=== PATIENT | female | born 1960 | race Caucasian/White ===

== ENCOUNTER 2017-03-27 01:46 | Inpatient (IN) | payer OTHER ==
[2017-03-27] MEDS ORDERED: ACETAMINOPHEN TAB 500 MG TAB PO STA (02:02)
[2017-03-27] MEDS ORDERED: IBUPROFEN 600 MG TAB PO STA (02:02)
--- NOTE | 2017-03-27 02:05 | ED ---
Back Pain HPI - General Chief Complaint: Back Pain/Injury Stated Complaint: Back Pain Time Seen by Provider: 03/27/17 01:55 Source: patient, RN notes reviewed Limitations: no limitations - History of Present Illness Initial Comments: 56-year-old female presents to the emergency department with a chief complaint of left-sided flank pain. Patient states she's had this for the past few days. This today she felt very fatigued and very warm. Patient states that she was concerned due to the pain with fatigue and the fever so she thought that she should be evaluated. Patient states his sister left flank. Patient states there is no radiation to the from the abdomen. Patient denies any nausea vomiting fever or chills. Patient denies any changes in urination with this. Patient states she hasn't had any other symptoms. Patient states she was concerned due to the fever and pain so she thought that she should be evaluated. Patient denies any recent shortness of breath, chest pain, back pain , abdominal pain, nausea vomiting, numbness or tingling, dysuria or hematuria, constipation or diarrhea, headaches or visual changes, or any other current symptoms. - Related Data Home Medications Medication Instructions Recorded Confirmed No Known Home Medications [No 03/27/17 03/27/17 Known Home Medications] Allergies Allergy/AdvReac Type Severity Reaction Status Date / Time No Known Allergies Allergy Verified 03/27/17 01:52 Review of Systems ROS Statement: Those systems with pertinent positive or pertinent negative responses have been documented in the HPI. ROS Other: All systems not noted in ROS Statement are negative. Past Medical History Past Medical History: No Reported History History of Any Multi-Drug Resistant Organisms: None Reported Past Surgical History: Hysterectomy Additional Past Surgical History / Comment(s): thyroidectomy Past Psychological History: No Psychological Hx Reported Smoking Status: Never smoker Past Alcohol Use History: Rare Past Drug Use History: None Reported General Exam - General Exam Comments Initial Comments: General: The patient is awake and alert, in no distress, and does not appear acutely ill. Eye: Pupils are equal, round and reactive to light, extra-ocular movements are intact; there is normal conjunctiva bilaterally. No signs of icterus. Ears, nose, mouth and throat: There are moist mucous membranes and no oral lesions. Neck: The neck is supple, there is no tenderness. Cardiovascular: There is a regular rate and rhythm. No murmur, rub or gallop is appreciated. Respiratory: Lungs are clear to auscultation, respirations are non-labored, breath sounds are equal. No wheezes, stridor, rales, or rhonchi. Gastrointestinal: Soft, non-distended, non-tender abdomen without masses or organomegaly noted. There is no rebound or guarding present. Left sided CVA tenderness. Bowel sounds are unremarkable. Back: There is no tenderness to palpation in the midline. There is no obvious deformity. No rashes noted. Musculoskeletal: Normal ROM, no tenderness, There is no pedal edema. There is no calf tenderness or swelling. Sensation intact. Pulses equal bilaterally 2+. Neurological: CN II-XII intact, There are no obvious motor or sensory deficits. Coordination appears grossly intact. Speech is normal. Skin: Skin is warm and dry and no rashes or lesions are noted. Psychiatric: Cooperative, appropriate mood & affect, normal judgment. Limitations: no limitations Course Vital Signs 03/27/17 01:46 Temperature 102.5 F H Pulse Rate 118 H Respiratory 18 Rate Blood Pressure 177/79 O2 Sat by Pulse 97 Oximetry Medical Decision Making - Medical Decision Making 56-year-old female presents for fever and flank pain. At this time patient does need sepsis criteria with a positive urine which makes a suspicion of pyelonephritis. Due to the fever and the flank pain with positive urinary will keep the patient for IV antibiotics. We did discuss this with the patient and she is in agreement with the plan. - Lab Data Result diagrams: 03/27/17 02:22 Lab Results 03/27/17 03/27/17 Range/Units 02:22 02:27 WBC 7.3 (3.8-10.6) k/uL RBC 4.32 (3.80-5.40) m/uL Hgb 12.7 (11.4-16.0) gm/dL Hct 37.0 (34.0-46.0) % MCV 85.7 (80.0-100.0) fL MCH 29.4 (25.0-35.0) pg MCHC 34.3 (31.0-37.0) g/dL RDW 13.0 (11.5-15.5) % Plt Count 186 (150-450) k/uL Neutrophils % 87 % Lymphocytes % 7 % Monocytes % 4 % Eosinophils % 1 % Basophils % 0 % Neutrophils # 6.3 (1.3-7.7) k/uL Lymphocytes # 0.5 L (1.0-4.8) k/uL Monocytes # 0.3 (0-1.0) k/uL Eosinophils # 0.1 (0-0.7) k/uL Basophils # 0.0 (0-0.2) k/uL Urine Color Yellow Urine Appearance Cloudy H (Clear) Urine pH 7.0 (5.0-8.0) Ur Specific [place] 1.014 (1.001-1.035) Urine Protein Trace H (Negative) Urine Glucose (UA) Negative (Negative) Urine Ketones Negative (Negative) Urine Blood Trace H (Negative) Urine Nitrite Negative (Negative) Urine Bilirubin Negative (Negative) Urine Urobilinogen <2.0 (<2.0) mg/dL Ur Leukocyte Esterase Large H (Negative) Urine RBC 14 H (0-5) /hpf Urine WBC 97 H (0-5) /hpf Ur Squamous Epith Cells <1 (0-4) /hpf Urine Bacteria Occasional H (None) /hpf Urine Mucus Rare H (None) /hpf - EKG Data -: EKG Interpreted by Il 03/27/17 02:39 Sinus tachycardia 109 bpm, normal axis, no atopy, no S-T depressions or elevations, Disposition Clinical Impression: Sepsis, Pyelonephritis, acute Disposition: ADMITTED IP TO THIS HOSP Condition: Stable Referrals: Keely Flores MD [Primary Care Provider] - 1-2 days Time of Disposition: 03:10 Decision Date: 03/27/17 Decision Time: 03:10
[2017-03-27] MEDS: SODIUM CHLORIDE 0.9% 500 ML IV SCH (02:20)
[2017-03-27 02:38] LABS: Basophils % (A) 0 %; CH 29.2; CHCM 34.2; Eosinophils # (A) 0.1 k/uL (0-0.7); Eosinophils % (A) 1 %; HDW 2.44; HGB 12.7 gm/dL (11.4-16.0); Luc # (Auto) 0.06; Luc % (Auto) 1; Lymphocytes # (A) 0.5 k/uL (1.0-4.8); Lymphocytes % (A) 7 %; MCH 29.4 pg (25.0-35.0); MCHC 34.3 g/dL (31.0-37.0); MCV 85.7 fL (80.0-100.0); Mean Platelet Volume 7.5; Monocytes # (A) 0.3 k/uL (0-1.0); Monocytes % (A) 4 %; Neutrophils # (A) 6.3 k/uL (1.3-7.7); Neutrophils % (A) 87 %; RBC 4.32 m/uL (3.80-5.40); WBC 7.3 k/uL (3.8-10.6)
[2017-03-27 02:45] LABS: Appearance,Urine Cloudy (Clear); Bacteria,Urine Occasional /hpf; Bilirubin,Urine Negative (Negative); Glucose,Urine (UA) Negative (Negative); Ketones,Urine Negative (Negative); Leukocyte Esterase,Urine Large (Negative); Mucus,Urine Rare /hpf; Nitrite,Urine Negative (Negative); Particle Count 6178; Protein,Urine Trace (Negative); RBC,Urine 14 /hpf (0-5); Specific Gravity,Urine 1.014 (1.001-1.035); Squamous Epithelial Cell,Urine <1 /hpf (0-4); UA Billing (MACRO vs. MICRO) MICRO; Urobilinogen,Urine <2.0 mg/dL (<2.0); WBC,Urine 97 /hpf (0-5)
[2017-03-27 02:54] LABS: Partial Thromboplastin Time 24.7 sec (22.0-30.0); Prothrombin Time 10.4 sec (9.0-12.0)
[2017-03-27 02:56] LABS: ALT 46 U/L (9-52); AST 66 U/L (14-36); Alkaline Phosphatase 72 U/L (38-126); Anion Gap 12 mmol/L; Blood Urea Nitrogen 13 mg/dL (7-17); Carbon Dioxide 22 mmol/L (22-30); Chloride 104 mmol/L (98-107); Glucose 114 mg/dL (74-99); Non-African American GFR(MDRD) >60 (>60 ml/min/1.73 sqM); Potassium 3.7 mmol/L (3.5-5.1); Sodium 138 mmol/L (137-145); Total Bilirubin 0.9 mg/dL (0.2-1.3); Total Protein 6.9 g/dL (6.3-8.2)
[2017-03-27] MEDS ORDERED: NALOXONE 0.4 MG/ML 1 ML VIAL IV PRN (03:10)
[2017-03-27] MEDS ORDERED: KETOROLAC 30 MG/ML 1 ML VIAL IVP PRN (03:10)
[2017-03-27] MEDS ORDERED: ONDANSETRON 4 MG/2 ML VIAL IVP PRN (03:10)
[2017-03-27] MEDS ORDERED: IBUPROFEN 400 MG TAB PO PRN (03:10)
[2017-03-27] MEDS: SODIUM CHLORIDE 0.9% 1,000 ML IV SCH ×3 (03:58→21:01)
[2017-03-27 05:44] VITALS: BMI 29.3
[2017-03-27] MEDS: ACETAMINOPHEN TAB 325 MG TAB PO PRN ×3 (11:28→22:46)
[2017-03-27] MEDS ORDERED: PIPERACILLIN-TAZOBACTAM 3.375 GM in DEXTROSE/WATER 1 50ML.BAG IVPB STA (12:43)
[2017-03-27] MEDS ORDERED: RX INFO: IV CONTRAST WAS GIVEN 1 EACH MISC MISCELLANE PRN (14:26)
[2017-03-27] MEDS: IBUPROFEN 600 MG TAB PO PRN (15:11)
[2017-03-27] MEDS: IOHEXOL 350 MG/ML 25 ML BOTTLE (ORAL USE) PO PRN ×2 (15:13→16:01)
[2017-03-27] MEDS: FAMOTIDINE 20 MG/2 ML VIAL IV SCH ×2 (16:01→21:00)
--- NOTE | 2017-03-27 16:19 | P.HPIM ---
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 She did not have any sore throat, she does not remember any sick contacts, patient ended up coming to the ER yesterday with a picture of sepsis with high temperature tachycardia and hypotension, she was given 3 L of normal saline in the ER and she was placed on IV antibiotic in the form of Rocephin she had a blood culture as well as urine culture and she was admitted to the hospital for evaluation, patient developed recurrent fever she was given Motrin and Tylenol and a blood culture was obtained, we switch her Rocephin into Zosyn 3.375 g IV piggyback every 6 hours, and infectious disease consultation was obtained from . And the patient was sent for CT of the abdomen and pelvis with contrast. Review of Systems Constitutional: Reports chills, Reports fever, Reports weakness Eyes: denies blurred vision, denies bulging eye, denies decreased vision, denies diplopia Ears: deny: decreased hearing Ears, nose, mouth and throat: Denies dysphagia, Denies neck lump, Denies sore throat Cardiovascular: Denies chest pain, Denies dyspnea on exertion, Denies high blood pressure, Denies orthopnea, Denies palpitations, Denies phlebitis, Denies rapid heart beat Respiratory: Denies congestion, Denies cough, Denies cough with sputum, Denies home oxygen, Denies sleep apnea, Denies snoring, Denies wheezing Gastrointestinal: Reports abdominal pain (Left flank area), Denies belching, Denies bloating, Denies BRBPR, Denies change in bowel habits, Denies excessive gas, Denies heartburn, Denies lactose intolerance, Denies melena, Denies nausea , Denies vomiting Genitourinary: Denies dysuria, Denies hot flashes, Denies nocturia, Denies urgency, Denies urinary frequency, Denies vaginal discharge Musculoskeletal: Denies myalgias Musculoskeletal: absent: ankle pain, ankle stiffness, ankle swelling, elbow pain , elbow stiffness, elbow swelling, foot pain, foot stiffness, foot swelling, hand pain, hand stiffness, hand swelling, hip pain, hip stiffness, hip swelling , knee pain, knee stiffness, knee swelling, shoulder pain, shoulder stiffness, shoulder swelling, wrist pain, wrist stiffness, wrist swelling Integumentary: Denies pruritus, Denies rash Neurological: Reports headaches, Denies numbness, Denies weakness Psychiatric: Denies anxiety, Denies depression Endocrine: Denies fatigue, Denies weight change Past Medical History Past Medical History: Thyroid Disorder (Partial thyroidectomy) History of Any Multi-Drug Resistant Organisms: None Reported Past Surgical History: Hysterectomy (Total abdominal hysterectomy and bilateral salpingo-oophorectomy secondary to uterine fibroids.) Additional Past Surgical History / Comment(s): thyroidectomy Past Anesthesia/Blood Transfusion Reactions: No Reported Reaction Past Psychological History: No Psychological Hx Reported Smoking Status: Never smoker Past Alcohol Use History: Rare Past Drug Use History: None Reported - Past Family History Father Family Medical History: Cancer (Father at age of 82 from pneumonia he also had a history of any cancer post-Whipple procedure as well as diabetes and Parkinson disease.), Diabetes Mellitus Additional Family Medical History / Comment(s): parkinsons, pancreatic cancer Mother Family Medical History: Cancer (Mother is 82-year-old has history of lung cancer as well as diabetes and hypertension she is following up with Dr. Estrada for hematology oncology.), Diabetes Mellitus, Hypertension Additional Family Medical History / Comment(s): lung cancer Brother(s) Family Medical History: No Reported History (The patient has 2 brothers no major medical problems) Sister(s) Family Medical History: Diabetes Mellitus (Patient has 6 sisters 2 of them with diabetes.) Son(s) Family Medical History: No Reported History (Patient has 2 sons no major medical problems.) Medications and Allergies Home Medications Medication Instructions Recorded Confirmed Type No Known Home Medications [No 03/27/17 03/27/17 History Known Home Medications] Allergies Allergy/AdvReac Type Severity Reaction Status Date / Time No Known Allergies Allergy Verified 03/27/17 07:45 Physical Exam Vitals: Vital Signs Temp Pulse Pulse Resp BP BP Pulse Ox 03/27/17 12:22 102.3 F H 03/27/17 11:00 135/79 03/27/17 08:00 18 03/27/17 07:00 98.4 F 90 18 91/58 93 L 03/27/17 05:13 98.9 F 95 18 103/63 96 03/27/17 03:52 99.9 F H 104 H 18 112/64 96 03/27/17 03:11 110 H 18 97 03/27/17 01:46 102.5 F H 118 H 18 177/79 97 Intake and Output 03/26/17 03/27/17 03/27/17 22:59 06:59 14:59 Intake Total 20 Balance 20 Intake: Oral 20 Other: Voiding Method Toilet Toilet Weight 77.5 kg 77.5 kg Patient Weight 03/28/17 06:59 Weight 77.5 kg - Constitutional General appearance: average body habitus, no acute distress - EENT Eyes: anicteric sclerae, EOMI, PERRLA, no ptosis, no scleral icterus, normal appearance ENT: hearing grossly normal, NA/AT, normal oropharynx, no thrush Ears: bilateral: normal - Neck Neck: no lymphadenopathy, normal ROM, no rigidity, no stridor, no thyromegaly Carotids: bilateral: upstroke normal Thyroid: bilateral: normal size - Respiratory Respiratory: bilateral: diminished, negative: dullness, rales, rhonchi, wheezing , prolonged expiration, prolonged inspiration - Cardiovascular Rhythm: regular Heart sounds: normal: S1, S2 Abnormal Heart Sounds: no systolic murmur, no S3 Gallop, no S4 Gallop, no click - Gastrointestinal General gastrointestinal: soft, no splenomegaly, tenderness (Left costophrenic angle), no umbilical hernia, no ventral hernia - Integumentary Integumentary: normal, normal turgor - Neurologic Neurologic: CNII-XII intact - Musculoskeletal Musculoskeletal: gait normal, strength equal bilaterally - Psychiatric Psychiatric: A&O x's 3, appropriate affect, intact judgment & insight Results CBC & Chem 7: 03/27/17 02:22 03/27/17 02:22 Labs: Abnormal Lab Results - Last 24 Hours (Table) 03/27/17 03/27/17 03/27/17 Range/Units 02:22 02:22 02:27 Lymphocytes # 0.5 L (1.0-4.8) k/uL Glucose 114 H (74-99) mg/dL AST 66 H (14-36) U/L Urine Appearance Cloudy H (Clear) Urine Protein Trace H (Negative) Urine Blood Trace H (Negative) Ur Leukocyte Esterase Large H (Negative) Urine RBC 14 H (0-5) /hpf Urine WBC 97 H (0-5) /hpf Urine Bacteria Occasional H (None) /hpf Urine Mucus Rare H (None) /hpf Microbiology - Last 24 Hours (Table) 03/27/17 02:27 Urine Culture - Preliminary Urine,Clean Catch Thrombosis Risk Factor Assmnt - DVT/VTE Prophylaxis DVT/VTE Prophylaxis: Pharmacologic Prophylaxis ordered, Mechanical Prophylaxis ordered - Choose All That Apply Any of the Below Risk Factors Present?: Yes Each Factor Represents 1 point: Age 41-60 years, Obesity (BMI >25) Other Risk Factors: No Other congenital or acquired thrombophilia - If yes, enter type in comment: No Thrombosis Risk Factor Assessment Total Risk Factor Score: 2 Thrombosis Risk Factor Assessment Level: Low Risk Assessment and Plan Plan: Assessment and plan: 1. UTI with sepsis possible pyelonephritis on the left side and possible diverticulitis. Start the patient on IV antibiotic Zosyn 3.375 g IV piggyback every 6 hours, continue Tylenol 650 mg orally every 6 hours as needed, continue Motrin 600 mg orally every 6 hours as needed, send the patient for computed tomography scan of the abdomen and pelvis with contrast, infectious disease consultation, follow-up on blood cultures and urine culture. 2. History of thyroid nodules post partial thyroidotomy. Stable at this time. 3. We will obtain CPK level 4. DVT prophylaxis. Heparin 5000 units subcutaneously every 12 hours. 5. GI prophylaxis. Continue patient on Pepcid 20 mg IV push every 12 hours. 6. Patient is full code. 7. Admit as an inpatient. Estimate length of stay 2 midnights.
--- NOTE | 2017-03-27 17:01 | CT ---
EXAMINATION TYPE: CT abdomen pelvis w con DATE OF EXAM: 03/27/2017 4:54 PM HISTORY: Left sided flank pain CT DLP: 1448mGycm Automated Exposure Control for Dose Reduction was Utilized. CONTRAST: CT scan of the abdomen and pelvis is performed with IV Contrast, patient injected with 100 mL of Omni paque 300. COMPARISON: None. FINDINGS: LUNG BASES: Dependent atelectasis is present bilaterally. LIVER/GB: No significant abnormality is appreciated. PANCREAS: No significant abnormality is seen. SPLEEN: No significant abnormality is seen. ADRENALS: No significant abnormality is seen. KIDNEYS: No renal stones or hydronephrosis is evident bilaterally. There is heterogeneous diminished enhancement with mild surrounding fat stranding involving predominantly upper to mid pole level of le ft kidney. Findings correlate with patient's suspected history of left-sided pyelonephritis. No intra luminal calculus and bladder is seen. BOWEL: Appendix is within normal limits from the cecum. Oral contrast does not reach colonic level. UTERUS/ADNEXA: Uterus is surgically absent or markedly atrophic in appearance. LYMPH NODES: No greater than 1cm abdominal or pelvic lymph nodes are appreciated. OSSEOUS STRUCTURES: Spine is straightened on sagittal images. OTHER: There is moderate sized fat-containing umbilical hernia IMPRESSION: Heterogeneous diminished enhancement with surrounding fat stranding upper to mid pole lev el left kidney is consistent with the clinical suspicion of left-sided pyelonephritis.
[2017-03-27] MEDS: HEPARIN SODIUM,PORCINE 5,000 UNIT/ML 1 ML VIAL SQ SCH (21:00)
[2017-03-27] MEDS: PIPERACILLIN-TAZOBACTAM 3.375 GM in DEXTROSE/WATER 1 50ML.BAG IVPB SCH (21:01)
--- NOTE | 2017-03-27 23:30 | CONS ---
DATE OF CONSULTATION: 03/27/2017 REASON FOR CONSULTATION: Urinary tract infection with sepsis. HISTORY OF PRESENT ILLNESS: The patient is a 56-year-old female presenting to the ER last night after the patient developed a fever. The patient has not been feeling well for about a week to 10 days now. She did have some mild discomfort in the left flank area which did not have significant burning or frequency of urine or any nausea or vomiting. With those symptoms getting worse last night, the patient started having a fever with rigors and chills. She did have an episode of vomiting. No significant diarrhea. No abdominal pain. She did have a dull aching pain in the left flank area, about 3 to 4 out of 10 and no radiation. The patient was noted to have a fever of 103 degrees Fahrenheit. She did have a positive UA. The patient was started on Rocephin. With the persistent fever today, antibiotics were broadened to Zosyn. CT abdomen and pelvis was ordered which did raise the possibility of left-sided pyelonephritis. I was asked to see the patient for further recommendations regarding antibiotic therapy. REVIEW OF SYSTEMS: CONSTITUTIONAL: Positive for weakness and fever. EYES: No complaint. ENT: No complaint. RESPIRATORY: No complaint. CARDIOVASCULAR: No complaint. GENITOURINARY: As per HPI. GASTROINTESTINAL: As per HPI. MUSCULOSKELETAL: No complaint. INTEGUMENTARY: No complaint. PSYCHOLOGICAL: No complaint. ENDOCRINE: No complaint. NEUROLOGIC: No complaint. PAST MEDICAL HISTORY: Thyroid disorder. PAST SURGICAL HISTORY: Hysterectomy and partial thyroidectomy. SOCIAL HISTORY: No history of smoking, drinking or drug use. FAMILY HISTORY: Father with a history of diabetes, Parkinson's disease and cancer. Mother with a history of lung cancer and diabetes. ALLERGIES: NO KNOWN DRUG ALLERGIES. Medications include: 1. Tylenol. 2. Pepcid. 3. Heparin. 4. Motrin. 5. Narcan. 6. Zofran. 7. Piperacillin tazobactam. On examination, blood pressure is 133/80 with a pulse of 100, temperature 98.7, T-max 103.1. She is 96% on room air. General description is a middle-aged female lying in bed in no distress. No tachypnea or accessory muscle of respiration use. HEENT examination shows no pallor or scleral icterus. Oral mucous membrane is dry. NECK: Trachea is central. No thyromegaly. LUNGS: Unlabored breathing. Clear to auscultation anteriorly. No wheeze or crackle. HEART: S1, S2. Regular rate and rhythm. ABDOMEN: Soft. Patient does have left flank tenderness. No guarding. No rigidity. No organomegaly. EXTREMITIES: No edema of feet. SKIN EXAMINATION: No rashes. No masses palpable. NEUROLOGICAL: The patient is awake, alert, oriented x3. Mood and affect normal. LABS: Hemoglobin is 12.7, white count 7.3 with a BUN of 13, creatinine 0.80. Urine with large leukocyte esterase, 97 WBCs with occasional bacteria. Blood and urine cultures are currently pending. CT report mentioned above. DIAGNOSTIC IMPRESSION AND PLAN: Patient admitted to hospital with a fever with left flank tenderness, significantly positive UA, likely left-sided pyelonephritis, likely from enteric Gram-negative pathogen in a patient with no recent antibiotic exposure, possibly more likely an E coli or similar enteric pathogen, though it is common to have a fever for a few days despite being on antibiotic in a patient with pyelonephritis. PLAN: 1. I agree with broadening antibiotic therapy to Zosyn 3.375 q.8. 2. I agree with IV fluid. 3. I will follow up on the clinical condition as well as cultures to further adjust medication if needed. Thank you for this consultation. Will follow this patient along with you. JUAN
[2017-03-28] MEDS: IBUPROFEN 600 MG TAB PO PRN (05:06)
[2017-03-28] MEDS: PIPERACILLIN-TAZOBACTAM 3.375 GM in DEXTROSE/WATER 1 50ML.BAG IVPB SCH ×3 (05:08→20:33)
[2017-03-28] MEDS: SODIUM CHLORIDE 0.9% 1,000 ML IV SCH ×2 (09:10→17:04)
[2017-03-28] MEDS: HEPARIN SODIUM,PORCINE 5,000 UNIT/ML 1 ML VIAL SQ SCH ×2 (09:11→20:33)
[2017-03-28] MEDS: FAMOTIDINE 20 MG/2 ML VIAL IV SCH (09:11)
[2017-03-28 09:39] LABS: Basophils % (A) 0 %; CH 29.4; Eosinophils % (A) 0 %; HCT 35.6 % (34.0-46.0); HDW 2.63; Luc # (Auto) 0.09; Luc % (Auto) 1; Lymphocytes # (A) 0.7 k/uL (1.0-4.8); Lymphocytes % (A) 7 %; MCH 29.2 pg (25.0-35.0); MCHC 33.7 g/dL (31.0-37.0); MCV 86.8 fL (80.0-100.0); Mean Platelet Volume 7.4; Monocytes # (A) 0.3 k/uL (0-1.0); Monocytes % (A) 3 %; Neutrophils # (A) 8.6 k/uL (1.3-7.7); Neutrophils % (A) 88 %; RDW 12.8 % (11.5-15.5); WBC 9.8 k/uL (3.8-10.6); WBC (Perox) 9.06
[2017-03-28 09:58] LABS: ALT 96 U/L (9-52); AST 85 U/L (14-36); Alkaline Phosphatase 90 U/L (38-126); Anion Gap 8 mmol/L; Blood Urea Nitrogen 8 mg/dL (7-17); Calcium 8.4 mg/dL (8.4-10.2); Carbon Dioxide 23 mmol/L (22-30); Chloride 106 mmol/L (98-107); Creatine Kinase 114 U/L (30-135); Glucose 149 mg/dL (74-99); Non-African American GFR(MDRD) >60 (>60 ml/min/1.73 sqM); Potassium 3.8 mmol/L (3.5-5.1); Sodium 137 mmol/L (137-145); Total Bilirubin 2.2 mg/dL (0.2-1.3); Total Protein 5.9 g/dL (6.3-8.2)
[2017-03-28] MEDS: KETOROLAC 30 MG/ML 1 ML VIAL IVP PRN ×2 (10:55→22:06)
[2017-03-28] MEDS: ACETAMINOPHEN TAB 325 MG TAB PO PRN ×2 (10:55→18:44)
--- NOTE | 2017-03-28 15:45 | P.PN ---
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 She did not have any sore throat, she does not remember any sick contacts, patient ended up coming to the ER yesterday with a picture of sepsis with high temperature tachycardia and hypotension, she was given 3 L of normal saline in the ER and she was placed on IV antibiotic in the form of Rocephin she had a blood culture as well as urine culture and she was admitted to the hospital for evaluation, patient developed recurrent fever she was given Motrin and Tylenol and a blood culture was obtained, we switch her Rocephin into Zosyn 3.375 g IV piggyback every 6 hours, and infectious disease consultation was obtained from . And the patient was sent for CT of the abdomen and pelvis with contrast. 03/28: CAT scan of the abdomen showed a left-sided pyelonephritis. Patient continues to have pain for which we have added in Toradol. She did have a bowel movement. Dr. Alexander is following from infectious disease. Patient is currently on Zosyn. Urine culture showing gram-negative bacilli. Anticipate discharge home tomorrow. Objective - Vital Signs Vital signs: Vital Signs Temp 98.2 F 03/28/17 07:00 Pulse 89 03/28/17 08:00 Resp 20 03/28/17 08:00 BP 116/72 03/28/17 07:00 Pulse Ox 96 03/28/17 07:00 Intake & Output 03/27/17 03/28/17 03/28/17 18:59 06:59 18:59 Intake Total 240 100 540 Balance 240 100 540 Weight 77.5 kg Intake: Oral 240 100 540 Other: Voiding Method Toilet Toilet Toilet # Voids 3 1 - Exam General appearance: average body habitus, no acute distress - EENT Eyes: anicteric sclerae, EOMI, PERRLA, no ptosis, no scleral icterus, normal appearance ENT: hearing grossly normal, NA/AT, normal oropharynx, no thrush Ears: bilateral: normal - Neck Neck: no lymphadenopathy, normal ROM, no rigidity, no stridor, no thyromegaly Carotids: bilateral: upstroke normal Thyroid: bilateral: normal size - Respiratory Respiratory: bilateral: diminished, negative: dullness, rales, rhonchi, wheezing , prolonged expiration, prolonged inspiration - Cardiovascular Rhythm: regular Heart sounds: normal: S1, S2 Abnormal Heart Sounds: no systolic murmur, no S3 Gallop, no S4 Gallop, no click - Gastrointestinal General gastrointestinal: soft, no splenomegaly, tenderness (Left costophrenic angle), no umbilical hernia, no ventral hernia - Integumentary Integumentary: normal, normal turgor - Neurologic Neurologic: CNII-XII intact - Musculoskeletal Musculoskeletal: gait normal, strength equal bilaterally - Psychiatric Psychiatric: A&O x's 3, appropriate affect, intact judgment & insight - Labs CBC & Chem 7: 03/28/17 09:01 03/28/17 09:01 Labs: Abnormal Lab Results - Last 24 Hours (Table) 03/28/17 03/28/17 Range/Units 09:01 09:01 Neutrophils # 8.6 H (1.3-7.7) k/uL Lymphocytes # 0.7 L (1.0-4.8) k/uL Glucose 149 H (74-99) mg/dL Total Bilirubin 2.2 H (0.2-1.3) mg/dL AST 85 H (14-36) U/L ALT 96 H (9-52) U/L Total Protein 5.9 L (6.3-8.2) g/dL Albumin 3.2 L (3.5-5.0) g/dL Microbiology - Last 24 Hours (Table) 03/27/17 02:22 Blood Culture - Preliminary Blood No Growth after 24 hours 03/27/17 02:27 Urine Culture - Preliminary Urine,Clean Catch Assessment and Plan Plan: 1. UTI with sepsis possible pyelonephritis on the left side and possible diverticulitis. Start the patient on IV antibiotic Zosyn 3.375 g IV piggyback every 6 hours, continue Tylenol 650 mg orally every 6 hours as needed, continue Motrin 600 mg orally every 6 hours as needed, send the patient for computed tomography scan of the abdomen and pelvis with contrast, infectious disease consultation, follow-up on blood cultures and urine culture. 2. History of thyroid nodules post partial thyroidotomy. Stable at this time. 3. We will obtain CPK level 4. DVT prophylaxis. Heparin 5000 units subcutaneously every 12 hours. 5. GI prophylaxis. Continue patient on Pepcid 20 mg IV push every 12 hours. 6. Patient is full code. Discharge plan: Home in next 24 hours Impression and plan of care have been directed as dictated by the signing physician. Lianne Pierce nurse practitioner acting as scribe for signing physician.
--- NOTE | 2017-03-28 16:14 | PN ---
DATE OF SERVICE: 03/28/2017 REASON FOR FOLLOWUP: Left-sided pyelonephritis. INTERVAL HISTORY: The patient overall is feeling slightly better, breathing comfortably. Still has slight discomfort in left flank area, but no nausea, vomiting. No abdominal pain and no diarrhea. On examination, blood pressure is 118/75 with a pulse of 94, temperature 98.6. She is 96% an room air. General description is a middle-aged female lying in bed in no distress. RESPIRATORY SYSTEM: Unlabored breathing. Clear to auscultation anteriorly. HEART: S1, S2. Regular rate and rhythm. ABDOMEN: Soft. No tenderness. LABS: Hemoglobin is 12, white count 9.8 with a BUN of 8, creatinine 0.77. Blood culture is currently pending. Urine showed a Gram-negative. DIAGNOSTIC IMPRESSION AND PLAN: Patient with Gram-negative left-sided pyelonephritis; waiting for the identification of this Gram-negative and sensitivity to determine her discharge antibiotics. Continue the patient on Zosyn at this point, to which the patient's fever has responded. Continue supportive care.
[2017-03-28] MEDS: FAMOTIDINE 20 MG TAB PO SCH (20:33)
[2017-03-29] MEDS: ACETAMINOPHEN TAB 325 MG TAB PO PRN (04:12)
[2017-03-29] MEDS: PIPERACILLIN-TAZOBACTAM 3.375 GM in DEXTROSE/WATER 1 50ML.BAG IVPB SCH ×3 (05:11→20:53)
[2017-03-29] MEDS: SODIUM CHLORIDE 0.9% 1,000 ML IV SCH (05:12)
[2017-03-29] MEDS: HEPARIN SODIUM,PORCINE 5,000 UNIT/ML 1 ML VIAL SQ SCH ×2 (08:46→20:53)
[2017-03-29] MEDS: FAMOTIDINE 20 MG TAB PO SCH ×2 (08:46→20:53)
[2017-03-29] MEDS: KETOROLAC 30 MG/ML 1 ML VIAL IVP PRN ×3 (08:53→21:05)
[2017-03-29 11:46] LABS: ALT 74 U/L (9-52); AST 49 U/L (14-36); Alkaline Phosphatase 96 U/L (38-126); Anion Gap 8 mmol/L; Blood Urea Nitrogen 11 mg/dL (7-17); Calcium 8.7 mg/dL (8.4-10.2); Carbon Dioxide 23 mmol/L (22-30); Chloride 108 mmol/L (98-107); Glucose 104 mg/dL (74-99); Non-African American GFR(MDRD) >60 (>60 ml/min/1.73 sqM); Potassium 3.4 mmol/L (3.5-5.1); Sodium 139 mmol/L (137-145); Total Protein 6.4 g/dL (6.3-8.2)
[2017-03-29] MEDS ORDERED: POTASSIUM CHLORIDE ER 20 MEQ TAB.ER PO STA (12:12)
[2017-03-29 12:36] LABS: Cholesterol 168 mg/dL (<200); HDL Cholesterol 63 mg/dL (40-60); Triglycerides 165 mg/dL (<150)
--- NOTE | 2017-03-29 18:03 | PN ---
HISTORY OF PRESENT ILLNESS: This is a 56-year-old female patient who presented to the emergency department with left-sided flank pain. She thought initially it was due to muscular strain, but she had developed increasing pain and fever and presented to the emergency department for that reason. She was found to have an acute pyelonephritis and was started on IV antibiotic therapy. She is improving. However, she did have a temperature of 103 yesterday and infectious disease specialist was contacted. No changes currently at this time. She is doing well. She has been up ambulating. She is hemodynamically stable and afebrile this morning. PHYSICAL EXAMINATION: VITAL SIGNS: Temperature is 98.8, heart rate is 83, respiratory rate is 20, blood pressure is 102/61. Pulse oximetry is 97% on room air. GENERAL: The patient is seen sitting up in bed in no acute distress. LUNGS: Clear to auscultation. No wheeze, rales, rhonchi appreciated. HEART: Regular rhythm. No murmur. ABDOMEN: Soft, nontender. Bowel sounds positive. Slight CVA tenderness on the left. EXTREMITIES: No lower extremity edema was noted. NEURO: Patient is alert and oriented x3. LABS: ( ) is 139, ( ) is 3.4. BUN is 11, creatinine 0.67. WBC count is 9.8, hemoglobin 12.0, platelet count is 164. IMPRESSION: 1. Sepsis with acute left-sided pyelonephritis. Continue with IV antibiotic therapy, Tylenol for fever, Motrin if needed. Infectious Disease is following. Blood culture remains negative. 2. History of thyroid nodules, status post partial thyroidectomy, stable at this time. 3. Elevated liver enzymes. Will recheck in the morning and follow this closely. 4. Gastrointestinal prophylaxis with Pepcid. 5. Deep venous thrombosis prophylaxis with subcutaneous heparin. 6. Possible discharge home in a.m. I performed a history and physical examination of this patient and discussed the same with the dictator. I agree with the dictator's note. Any additional findings/opinions, etc. will be noted.
[2017-03-30] MEDS: PIPERACILLIN-TAZOBACTAM 3.375 GM in DEXTROSE/WATER 1 50ML.BAG IVPB SCH ×2 (05:31→12:25)
[2017-03-30] MEDS: KETOROLAC 30 MG/ML 1 ML VIAL IVP PRN (08:03)
[2017-03-30] MEDS: ACETAMINOPHEN TAB 325 MG TAB PO PRN ×2 (08:05→18:10)
[2017-03-30] MEDS: HEPARIN SODIUM,PORCINE 5,000 UNIT/ML 1 ML VIAL SQ SCH ×2 (08:06→22:02)
[2017-03-30] MEDS: FAMOTIDINE 20 MG TAB PO SCH ×2 (08:06→22:01)
[2017-03-30 08:09] LABS: Basophils % (A) 0 %; CH 29.1; CHCM 33.8; Eosinophils # (A) 0.1 k/uL (0-0.7); Eosinophils % (A) 1 %; HCT 34.2 % (34.0-46.0); HDW 2.62; HGB 11.3 gm/dL (11.4-16.0); Luc # (Auto) 0.23; Luc % (Auto) 3; Lymphocytes % (A) 15 %; MCH 28.6 pg (25.0-35.0); MCHC 33.1 g/dL (31.0-37.0); MCV 86.4 fL (80.0-100.0); Mean Platelet Volume 7.6; Monocytes # (A) 0.3 k/uL (0-1.0); Monocytes % (A) 5 %; Neutrophils # (A) 5.2 k/uL (1.3-7.7); Neutrophils % (A) 76 %; RBC 3.96 m/uL (3.80-5.40); RDW 12.8 % (11.5-15.5); WBC 6.8 k/uL (3.8-10.6); WBC (Perox) 6.96
[2017-03-30] MEDS: IBUPROFEN 600 MG TAB PO PRN (11:55)
[2017-03-30 12:58] LABS: Anion Gap 9 mmol/L; Blood Urea Nitrogen 11 mg/dL (7-17); Calcium 8.9 mg/dL (8.4-10.2); Carbon Dioxide 21 mmol/L (22-30); Chloride 108 mmol/L (98-107); Glucose 103 mg/dL (74-99); Non-African American GFR(MDRD) >60 (>60 ml/min/1.73 sqM); Potassium 3.9 mmol/L (3.5-5.1); Sodium 138 mmol/L (137-145)
--- NOTE | 2017-03-30 13:22 | P.PN ---
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 She did not have any sore throat, she does not remember any sick contacts, patient ended up coming to the ER yesterday with a picture of sepsis with high temperature tachycardia and hypotension. Patient was feeling slightly better yesterday. She now has ongoing fever. Associated with headache and generalized malaise. Which is worse than yesterday. Patient this time continues to feel somewhat poorly. Appetite is not good either. She hours denying nausea or emesis. She continues to have significant left flank pain which is modest to severe at times. Objective - Vital Signs Vital signs: Vital Signs Temp 98 F 03/30/17 11:59 Pulse 93 03/30/17 07:00 Resp 16 03/30/17 08:00 BP 136/91 03/30/17 07:00 Pulse Ox 96 03/30/17 07:00 Intake & Output 03/29/17 03/30/17 03/30/17 18:59 06:59 18:59 Intake Total 780 Balance 780 Weight 77.5 kg Intake: Oral 780 Other: Voiding Method Toilet Toilet Toilet # Voids 3 3 - Exam Pleasant 56-year-old woman modest discomfort HEENT: Anicteric conjunctiva are pink and moist nasal mucosa grossly intact without significant lesions, there is no thrush. Neck: The neck is supple without significant lymphadenopathy or thyromegaly. Lungs: Good bilateral air entry without significant crackles or wheezing. There is no significant bronchial sounds. There is no egophony or dullness. Heart: Regular rate and rhythm with an audible S1-S2, no S3 no S4. There is no significant murmur click or rub, PMI was nondisplaced. Abdomen: Positive bowel sounds soft and nontender without palpable masses or organomegaly. There was no guarding or rebound. There is significant flank tenderness to the left Extremities: The upper extremities have excellent pulses they are symmetric, no significant petechiae or telangiectasia. No splinter hemorrhages were noted. The lower extremities are free from significant edema. The peripheral pulses were 2+ and symmetric. Neuro: Awake alert oriented to person place and time. There are no acute new gross focal sensory motor deficits. - Labs CBC & Chem 7: 03/30/17 07:36 03/30/17 07:36 Labs: Abnormal Lab Results - Last 24 Hours (Table) 03/30/17 03/30/17 Range/Units 07:36 07:36 Hgb 11.3 L (11.4-16.0) gm/dL Chloride 108 H (98-107) mmol/L Carbon Dioxide 21 L (22-30) mmol/L Glucose 103 H (74-99) mg/dL Microbiology - Last 24 Hours (Table) 03/27/17 02:22 Blood Culture - Preliminary Blood No Growth after 72 hours 03/27/17 13:34 Blood Culture - Preliminary Blood No Growth after 48 hours 03/27/17 02:27 Urine Culture - Final Urine,Clean Catch Escherichia coli Laboratory Results WBC 6.8 k/uL (3.8-10.6) 03/30/17 07:36 RBC 3.96 m/uL (3.80-5.40) 03/30/17 07:36 Hgb 11.3 gm/dL (11.4-16.0) L 03/30/17 07:36 Hct 34.2 % (34.0-46.0) 03/30/17 07:36 MCV 86.4 fL (80.0-100.0) 03/30/17 07:36 MCH 28.6 pg (25.0-35.0) 03/30/17 07:36 MCHC 33.1 g/dL (31.0-37.0) 03/30/17 07:36 RDW 12.8 % (11.5-15.5) 03/30/17 07:36 Plt Count 205 k/uL (150-450) 03/30/17 07:36 Neutrophils % 76 % 03/30/17 07:36 Lymphocytes % 15 % 03/30/17 07:36 Monocytes % 5 % 03/30/17 07:36 Eosinophils % 1 % 03/30/17 07:36 Basophils % 0 % 03/30/17 07:36 Neutrophils # 5.2 k/uL (1.3-7.7) 03/30/17 07:36 Lymphocytes # 1.0 k/uL (1.0-4.8) 03/30/17 07:36 Monocytes # 0.3 k/uL (0-1.0) 03/30/17 07:36 Eosinophils # 0.1 k/uL (0-0.7) 03/30/17 07:36 Basophils # 0.0 k/uL (0-0.2) 03/30/17 07:36 PT 10.4 sec (9.0-12.0) 03/27/17 02:22 INR 1.0 (<1.1) 03/27/17 02:22 APTT 24.7 sec (22.0-30.0) 03/27/17 02:22 Sodium 138 mmol/L (137-145) 03/30/17 07:36 Potassium 3.9 mmol/L (3.5-5.1) 03/30/17 07:36 Chloride 108 mmol/L (98-107) H 03/30/17 07:36 Carbon Dioxide 21 mmol/L (22-30) L 03/30/17 07:36 Anion Gap 9 mmol/L 03/30/17 07:36 BUN 11 mg/dL (7-17) 03/30/17 07:36 Creatinine 0.70 mg/dL (0.52-1.04) 03/30/17 07:36 Est GFR (MDRD) Af Amer >60 (>60 ml/min/1.73 sqM) 03/30/17 07:36 Est GFR (MDRD) Non-Af >60 (>60 ml/min/1.73 sqM) 03/30/17 07:36 Glucose 103 mg/dL (74-99) H 03/30/17 07:36 Plasma Lactic Acid Bogdan 0.9 mmol/L (0.7-2.0) 03/27/17 02:22 Calcium 8.9 mg/dL (8.4-10.2) 03/30/17 07:36 Total Bilirubin 1.0 mg/dL (0.2-1.3) 03/29/17 11:11 AST 49 U/L (14-36) H 03/29/17 11:11 ALT 74 U/L (9-52) H 03/29/17 11:11 Alkaline Phosphatase 96 U/L (38-126) 03/29/17 11:11 Creatine Kinase 114 U/L (30-135) 03/28/17 09:01 Total Protein 6.4 g/dL (6.3-8.2) 03/29/17 11:11 Albumin 3.6 g/dL (3.5-5.0) 03/29/17 11:11 Triglycerides 165 mg/dL (<150) H 03/29/17 11:11 Cholesterol 168 mg/dL (<200) 03/29/17 11:11 LDL Cholesterol, Calc 72 mg/dL (0-99) 03/29/17 11:11 HDL Cholesterol 63 mg/dL (40-60) H 03/29/17 11:11 Urine Color Yellow 03/27/17 02:27 Urine Appearance Cloudy (Clear) H 03/27/17 02:27 Urine pH 7.0 (5.0-8.0) 03/27/17 02:27 Ur Specific [place] 1.014 (1.001-1.035) 03/27/17 02:27 Urine Protein Trace (Negative) H 03/27/17 02:27 Urine Glucose (UA) Negative (Negative) 03/27/17 02:27 Urine Ketones Negative (Negative) 03/27/17 02:27 Urine Blood Trace (Negative) H 03/27/17 02:27 Urine Nitrite Negative (Negative) 03/27/17 02:27 Urine Bilirubin Negative (Negative) 03/27/17 02:27 Urine Urobilinogen <2.0 mg/dL (<2.0) 03/27/17 02:27 Ur Leukocyte Esterase Large (Negative) H 03/27/17 02:27 Urine RBC 14 /hpf (0-5) H 03/27/17 02:27 Urine WBC 97 /hpf (0-5) H 03/27/17 02:27 Ur Squamous Epith Cells <1 /hpf (0-4) 03/27/17 02:27 Urine Bacteria Occasional /hpf (None) H 03/27/17 02:27 Urine Mucus Rare /hpf (None) H 03/27/17 02:27 Microbiology 03/27/17 02:22 Blood Blood Culture - Preliminary No Growth after 72 hours 03/27/17 13:34 Blood Blood Culture - Preliminary No Growth after 48 hours 03/27/17 02:27 Urine,Clean Catch Urine Culture - Final Escherichia coli Assessment and Plan (1) Pyelonephritis, acute Narrative/Plan: Pleasant 56-year-old woman presents to Hospital with significant left flank pain as well as fever and tachycardia and relative hypotension. She is receive resuscitation as well as antibiotic therapy. She was feeling slightly better but has not worsened. She saw having fever significant left flank discomfort and feels flushed and has significant headache. Concerned that she is having some difficulties with the piperacillin tazobactam antibiotic. The urine culture shows evidence of E. coli that is quite susceptible. We utilize ceftriaxone since his has excellent penetration into the kidney and will be highly effective against her current pathogen. Continue fluid resuscitation Toradol will be utilized for pain control patient suggested to take it an ongoing basis to help her feel better. Urinary hygiene is discussed. She is sexually active with her . She suggested to ensure that she does urinate directly after. To ensure that she is always wiping from back to front oh is using fresh tissue. Lastly she does complain of some dryness or vaginal area. Today she follows with her tire builder operator soon to see if she is a candidate for topical estrogen which will help the tissue, may make intercourse less difficult and may prevent further infections. Status: Acute
--- NOTE | 2017-03-30 13:50 | PN ---
Keely Parker [facility] dictating for Dr. Dusty Granger. HISTORY OF PRESENT ILLNESS: This is a 56-year-old female patient who presented to the emergency department with left-sided flank pain. She was found to have sepsis with acute left-sided pyelonephritis and has been continued on IV antibiotic therapy with infectious disease follow as well. Night before last, she had a temperature of 103. Yesterday she had only a low-grade temperature and this morning once again she has a low-grade temperature 100. Yesterday she was feeling well. This morning, she feels tired and has a headache which she normally never has. Her WBC count remains normal. Blood cultures are still negative to date. She is hemodynamically stable. PHYSICAL EXAMINATION: VITAL SIGNS: Temperature is 100.5, heart rate 93, respiratory rate 16, blood pressure 136/91, pulse oximetry 96% on room air. GENERAL: The patient is seen sitting up in bed in no acute distress. LUNGS: Clear to auscultation. No wheeze, rales, rhonchi appreciated. HEART: Regular rhythm. ABDOMEN: Soft, nontender. Bowel sounds are positive. Slight CVA tenderness on the left. EXTREMITIES: No lower extremity edema is noted. NEURO: Patient is alert and oriented x3. LABS: Sodium is 138, potassium 3.9, BUN 11, creatinine 0.70. WBC count 6.8, hemoglobin is 11.3, platelet count is 205. ASSESSMENT: 1. Sepsis with acute left-sided pyelonephritis. The patient continues to spike high temperatures. Infectious disease specialist will be contacted today regarding the possible need for an adjustment in antibiotic therapy. Continue with Tylenol for fever and Motrin if needed. Blood cultures remain negative. 2. History of thyroid nodule, status post partial thyroidectomy, stable at this time. 3. Elevated liver enzymes, unknown etiology. Recheck shows some improvement with still some slight elevation. Will recheck again tomorrow and continue to follow this closely. 4. Gastrointestinal prophylaxis with Pepcid. 5. Deep venous thrombosis prophylaxis with subcutaneous heparin.
[2017-03-30] MEDS: KETOROLAC 30 MG/ML 1 ML VIAL IVP SCH ×2 (14:17→19:02)
[2017-03-30] MEDS: CLOTRIMAZOLE TROCHE 10 MG TROCHE MUCOUS MEM SCH ×3 (14:17→22:00)
[2017-03-30] MEDS: SODIUM CHLORIDE 0.9% 1,000 ML IV SCH ×3 (14:19→22:07)
[2017-03-30 14:49] LABS: ALT 74 U/L (9-52); AST 54 U/L (14-36); Alkaline Phosphatase 113 U/L (38-126); Anion Gap 14 mmol/L; Blood Urea Nitrogen 9 mg/dL (7-17); Calcium 9.3 mg/dL (8.4-10.2); Carbon Dioxide 22 mmol/L (22-30); Chloride 105 mmol/L (98-107); Glucose 137 mg/dL (74-99); Non-African American GFR(MDRD) >60 (>60 ml/min/1.73 sqM); Sodium 141 mmol/L (137-145); Total Protein 6.9 g/dL (6.3-8.2)
[2017-03-30] MEDS: cefTRIAXone 2,000 MG in SODIUM CHLORIDE 0.9% 100 ML IVPB SCH (19:03)
[2017-03-31] MEDS: KETOROLAC 30 MG/ML 1 ML VIAL IVP SCH ×3 (00:04→14:05)
[2017-03-31] MEDS: CLOTRIMAZOLE TROCHE 10 MG TROCHE MUCOUS MEM SCH ×3 (00:07→09:54)
[2017-03-31] MEDS: SODIUM CHLORIDE 0.9% 1,000 ML IV SCH ×3 (00:07→09:52)
[2017-03-31 07:55] VITALS: BP 141/81; PULSE 68; RESP 19; TEMP 97.4
[2017-03-31 09:48] LABS: Basophils % (A) 1 %; CH 29.1; CHCM 33.4; Eosinophils # (A) 0.1 k/uL (0-0.7); Eosinophils % (A) 2 %; HCT 34.6 % (34.0-46.0); HDW 2.65; HGB 11.3 gm/dL (11.4-16.0); Luc % (Auto) 3; Lymphocytes # (A) 1.1 k/uL (1.0-4.8); Lymphocytes % (A) 20 %; MCH 28.7 pg (25.0-35.0); MCHC 32.8 g/dL (31.0-37.0); MCV 87.5 fL (80.0-100.0); Mean Platelet Volume 7.6; Monocytes # (A) 0.3 k/uL (0-1.0); Monocytes % (A) 6 %; Neutrophils % (A) 69 %; RBC 3.96 m/uL (3.80-5.40); RDW 12.9 % (11.5-15.5); WBC 5.7 k/uL (3.8-10.6); WBC (Perox) 6.07
[2017-03-31] MEDS: FAMOTIDINE 20 MG TAB PO SCH (09:51)
[2017-03-31] MEDS: cefTRIAXone 2,000 MG in SODIUM CHLORIDE 0.9% 100 ML IVPB SCH (09:51)
[2017-03-31] MEDS: HEPARIN SODIUM,PORCINE 5,000 UNIT/ML 1 ML VIAL SQ SCH (09:52)
[2017-03-31] MEDS: ACETAMINOPHEN TAB 325 MG TAB PO PRN (09:53)
[2017-03-31 10:38] LABS: Hemoglobin A1C 5.8 % (4.2-6.1)
--- NOTE | 2017-03-31 21:52 | PN ---
DATE OF SERVICE: 03/31/2017 Reason for follow up: E. coli, pyelonephritis. INTERVAL HISTORY: The patient is afebrile. She was seen on rounds earlier breathing comfortably. The patient denies significant headache. The patient denies significant chest pain, shortness of breath, cough. No abdominal pain. No diarrhea. On examination, blood pressure is 141/81, pulse of 68, temperature 107.4. She is 98% on room air. General description is a middle-aged female, up in the room in no distress. RESPIRATORY SYSTEM: Unlabored breathing. Clear to auscultation anteriorly. HEART: S1, S2. Regular rate and rhythm. ABDOMEN: Soft, no tenderness. LABS: Urine culture finalized is a sensitive pathogen. Blood culture negative, white count 5.7. DIAGNOSTIC IMPRESSION AND PLAN: Patient with E. coli pyelonephritis. Patient seemed to show overall improvement on Rocephin. In view of the organism being sensitive, she will be switched over to Cipro 500 mg twice a day for another 12 days to finish the course of therapy with outpatient follow-up. JUAN
--- NOTE | 2017-04-04 16:08 | P.DS ---
Providers Date of admission: 03/27/17 03:27 Expected date of discharge: 03/31/17 Attending physician: Rafiq Blanco Consults: 03/27/17 12:45 Consult Physician Urgent Consulting Provider: Wilson Alexander Consult Reason/Comments: urosepsis Do you want consulting provider notified?: Yes Primary care physician[facility] Course: This is a 56-year-old female one of with no prior medical history except for partial thyroidectomy secondary to thyroid nodule, was in her usual state of health about a week ago when she started to feel a bit pain in the left flank area on and off thought to be due to muscular pain due to her physical activity and 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 She did not have any sore throat, she does not remember any sick contacts, patient ended up coming to the ER yesterday with a picture of sepsis with high temperature tachycardia and hypotension, she was given 3 L of normal saline in the ER and she was placed on IV antibiotic in the form of Rocephin she had a blood culture as well as urine culture and she was admitted to the hospital for evaluation, patient developed recurrent fever she was given Motrin and Tylenol and a blood culture was obtained, we switch her Rocephin into Zosyn 3.375 g IV piggyback every 6 hours, and infectious disease consultation was obtained from . And the patient was sent for CT of the abdomen and pelvis with contrast. 03/28: CAT scan of the abdomen showed a left-sided pyelonephritis. Patient continues to have pain for which we have added in Toradol. She did have a bowel movement. Dr. Alexander is following from infectious disease. Patient is currently on Zosyn. Urine culture showing gram-negative bacilli. Anticipate discharge home tomorrow. 03/31: Dr. Alexander has recommended Cipro for another 12 days. Patient will be discharged home today in stable condition. Discharge Diagnoses: 1. UTI with sepsis possible pyelonephritis on the left side and possible diverticulitis. 2. History of thyroid nodules post partial thyroidotomy. Stable at this time. Discharge plan: Home in next 24 hours Impression and plan of care have been directed as dictated by the signing physician. Lianne Pierce nurse practitioner acting as scribe for signing physician. Patient Condition at Discharge: Good Plan - Discharge Summary New Discharge Prescriptions: Ciprofloxacin HCl [Cipro] 500 mg PO Q12HR #24 tablet Clotrimazole Shannan [Mycelex Shannan] 10 mg MUCOUS MEM 5XD #35 shannan Discharge Medication List Ciprofloxacin HCl [Cipro] 500 mg PO Q12HR #24 tablet 03/31/17 [Rx] Clotrimazole Shannan [Mycelex Shannan] 10 mg MUCOUS MEM 5XD #35 shannan 03/31/17 [ Rx] Follow up Appointment(s)/Referral(s): Keely Flores MD [Primary Care Provider] - 1 Week Wilson Alexander MD [STAFF PHYSICIAN] - 04/10/17 10:30 am Patient Instructions/Handouts: Urinary Tract Infection in Women (DC), Kidney Infection (DC) Discharge Disposition: HOME SELF-CARE
== END 2017-03-31 14:26 | disposition home or self-care (01) | DRG 872 ==
LOC: EC 01:46 → 4MS4W 03:27
PROVIDERS: ADMIT Internal Medicine; ATTEND Internal Medicine
DX: A41.51 Sepsis due to Escherichia coli [E. coli] (principal); I95.9 Hypotension, unspecified; N10 Acute pyelonephritis; R53.1 Weakness; E89.0 Postprocedural hypothyroidism; R11.10 Vomiting, unspecified; R74.8 Abnormal levels of other serum enzymes; R00.0 Tachycardia, unspecified; R51 Headache; Z90.710 Acquired absence of both cervix and uterus; Z80.0 Family history of malignant neoplasm of digestive organs; Z83.3 Family history of diabetes mellitus; Z82.0 Family history of epilepsy and other diseases of the nervous system; Z82.49 Family history of ischemic heart disease and other diseases of the circulatory system; Z80.1 Family history of malignant neoplasm of trachea, bronchus and lung; Z90.722 Acquired absence of ovaries, bilateral; Z90.79 Acquired absence of other genital organ(s); Z87.42 Personal history of other diseases of the female genital tract
CPT/HCPCS: 36415; 74177; 80048; 80053; 80061; 81001; 82550; 83036; 83605; 85025; 85610; 85730; 87040; 87077; 87086; 87186; 93005

== ENCOUNTER → 2017-12-08 | Outpatient (CLI) | payer OTHER ==
--- NOTE | 2017-12-09 08:15 | MM ---
Reason for exam: screening (asymptomatic). Last mammogram was performed 2 years ago. History: Patient is postmenopausal. Family history of breast cancer in maternal aunt at age 58. Took estrogen for 2 years 9 months beginning at age 48. Physical Findings: A clinical breast exam by your physician is recommended on an annual basis and results should be correlated with mammographic findings. MG Screening Mammo w CAD Bilateral CC and MLO view(s) were taken. Prior study comparison: December 14, 2015, right breast MG work up mamm w CAD RT. December 01, 2015, bilateral MG screening mammo w CAD. The breast tissue is heterogeneously dense. This may lower the sensitivity of mammography. There is no discrete abnormality. ASSESSMENT: Negative, BI-RAD 1 RECOMMENDATION: Routine screening mammogram of both breasts in 1 year.
== END | disposition home or self-care (01) ==
LOC: RADMAMWWP 07:31
PROVIDERS: ATTEND Family Medicine
DX: Z12.31 Encounter for screening mammogram for malignant neoplasm of breast (principal)
CPT/HCPCS: 77067

== ENCOUNTER 2018-01-22 05:28 | Observation (INO) | payer OTHER ==
[2018-01-22] MEDS ORDERED: SODIUM CHLORIDE 0.9% 1,000 ML IV STA (05:56)
[2018-01-22] MEDS ORDERED: cefTRIAXone IN SWFI 2,000 MG/20 ML SYRINGE IVP STA (05:57)
[2018-01-22] MEDS ORDERED: ACETAMINOPHEN TAB 500 MG TAB PO STA (06:00)
[2018-01-22 06:07] LABS: Basophils # (A) 0.1 k/uL (0-0.2); Basophils % (A) 1 %; Eosinophils # (A) 0.1 k/uL (0-0.7); Eosinophils % (A) 1 %; HCT 41.5 % (34.0-46.0); HGB 14.6 gm/dL (11.4-16.0); Lymphocytes # (A) 0.7 k/uL (1.0-4.8); Lymphocytes % (A) 12 %; MCH 28.7 pg (25.0-35.0); MCHC 35.1 g/dL (31.0-37.0); MCV 81.7 fL (80.0-100.0); Mean Platelet Volume 6.9; Monocytes # (A) 0.3 k/uL (0-1.0); Monocytes % (A) 5 %; Neutrophils # (A) 4.4 k/uL (1.3-7.7); Neutrophils % (A) 79 %; Platelet Count 269 k/uL (150-450); RBC 5.09 m/uL (3.80-5.40); RDW 12.7 % (11.5-15.5); WBC 5.6 k/uL (3.8-10.6)
[2018-01-22 06:18] LABS: Partial Thromboplastin Time 23.6 sec (22.0-30.0); Prothrombin Time 9.7 sec (9.0-12.0)
[2018-01-22 06:19] LABS: ALT 44 U/L (9-52); AST 38 U/L (14-36); Albumin 4.5 g/dL (3.5-5.0); Alkaline Phosphatase 72 U/L (38-126); Anion Gap 10 mmol/L; Blood Urea Nitrogen 13 mg/dL (7-17); Calcium 9.5 mg/dL (8.4-10.2); Carbon Dioxide 27 mmol/L (22-30); Chloride 104 mmol/L (98-107); Glucose 105 mg/dL (74-99); Magnesium 1.6 mg/dL (1.6-2.3); Potassium 4.2 mmol/L (3.5-5.1); Sodium 141 mmol/L (137-145); Total Bilirubin 0.7 mg/dL (0.2-1.3); Total Protein 7.4 g/dL (6.3-8.2)
--- NOTE | 2018-01-22 06:22 | ED ---
General Adult HPI - General Chief complaint: Arrhythmia/Palpitations Stated complaint: high heart rate Time Seen by Provider: 01/22/18 05:47 Source: patient Mode of arrival: ambulatory Limitations: no limitations - History of Present Illness Initial comments: 87 years old female presents with the tachycardia she checked her pulse several times him today and she noticed that her pulse was over 100/105 she said her [place] pulse rate is around 7 is then she woke up with the sweats didn't feel right. Weak had a mild sore throat started bit of a cough today also had upper back pain as well. Also complaining about pain in the suprapubic area. No headaches no neck stiffness has a mild cough no chest pain no abdominal pain mild pain in suprapubic area denies any frequency urgency dysuria no symptoms of TIA or CVA. Has a history of sepsis she had a sepsis last year was hospitalized for over a week - Related Data Home Medications Medication Instructions Recorded Confirmed Ergocalciferol (Vitamin D2) 50,000 unit PO NELSON 01/21/18 01/21/18 [Vitamin D2] Allergies Allergy/AdvReac Type Severity Reaction Status Date / Time No Known Allergies Allergy Verified 01/22/18 05:38 Review of Systems ROS Statement: Those systems with pertinent positive or pertinent negative responses have been documented in the HPI. ROS Other: All systems not noted in ROS Statement are negative. Past Medical History Past Medical History: Thyroid Disorder Additional Past Medical History / Comment(s): hx thyroid nodule, sepsis 03/2017 History of Any Multi-Drug Resistant Organisms: None Reported Past Surgical History: Hysterectomy, Tonsillectomy Additional Past Surgical History / Comment(s): partial thyroidectomy Past Anesthesia/Blood Transfusion Reactions: No Reported Reaction Past Psychological History: No Psychological Hx Reported Smoking Status: Never smoker Past Alcohol Use History: None Reported Past Drug Use History: None Reported - Past Family History Father Family Medical History: Cancer Additional Family Medical History / Comment(s): parkinsons, pancreatic cancer Mother Family Medical History: Cancer Additional Family Medical History / Comment(s): lung cancer Brother(s) Family Medical History: No Reported History (The patient has 2 brothers no major medical problems) Sister(s) Family Medical History: Diabetes Mellitus (Patient has 6 sisters 2 of them with diabetes.) Son(s) Family Medical History: No Reported History (Patient has 2 sons no major medical problems.) General Exam - General Exam Comments Initial Comments: General: The patient is awake and alert, in no distress, and does not appear acutely ill. Skin: Skin is warm and dry and no rashes or lesions are noted. Eye: Pupils are equal, round and reactive to light, extra-ocular movements are intact; there is normal conjunctiva bilaterally. Ears, nose, mouth and throat: There are moist mucous membranes and no oral lesions. Wrist mild erythema in the oropharynx Neck: The neck is supple, there is no tenderness no signs of meningitis Cardiovascular: There is a regular rate and rhythm. No murmur, rub or gallop is appreciated. Respiratory: To auscultation bilateral, noticed crackles at the bases bilateral Gastrointestinal: Soft, non-distended, non-tender abdomen without masses or organomegaly noted. There is no rebound or guarding present. Bowel sounds are unremarkable. Back: There is no tenderness to palpation in the midline. There is no obvious deformity. Musculoskeletal: Normal ROM, no tenderness, There is no pedal edema. There is no calf tenderness or swelling. No cords were appreciated. Neurological: CN II-XII intact, Cranial nerves III through XII are intact. There are no obvious motor or sensory deficits. Coordination appears grossly intact. Speech is normal. Psychiatric: Cooperative, appropriate mood & affect, normal judgment. 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 ] Respiratory 20 Rate Blood Pressure 125/73 O2 Sat by Pulse 96 Oximetry EKG Findings - EKG Comments: EKG Findings:: EKG is a sinus tachycardia heart rate is 1 or 2 MT interval is 172 QRS duration is 92 QT/QTc is 40/443 review of this EKG does not reveal any ST elevation or ST depression Medical Decision Making - Lab Data Result diagrams: 01/22/18 05:41 01/22/18 05:41 Lab Results 01/22/18 01/22/18 01/22/18 Range/Units 05:41 05:41 05:41 WBC 5.6 (3.8-10.6) k/uL RBC 5.09 (3.80-5.40) m/uL Hgb 14.6 (11.4-16.0) gm/dL Hct 41.5 (34.0-46.0) % MCV 81.7 (80.0-100.0) fL MCH 28.7 (25.0-35.0) pg MCHC 35.1 (31.0-37.0) g/dL RDW 12.7 (11.5-15.5) % Plt Count 269 (150-450) k/uL Neutrophils % 79 % Lymphocytes % 12 % Monocytes % 5 % Eosinophils % 1 % Basophils % 1 % Neutrophils # 4.4 (1.3-7.7) k/uL Lymphocytes # 0.7 L (1.0-4.8) k/uL Monocytes # 0.3 (0-1.0) k/uL Eosinophils # 0.1 (0-0.7) k/uL Basophils # 0.1 (0-0.2) k/uL PT (9.0-12.0) sec INR (<1.2) APTT (22.0-30.0) sec Sodium 141 (137-145) mmol/L Potassium 4.2 (3.5-5.1) mmol/L Chloride 104 (98-107) mmol/L Carbon Dioxide 27 (22-30) mmol/L Anion Gap 10 mmol/L BUN 13 (7-17) mg/dL Creatinine 0.80 (0.52-1.04) mg/dL Est GFR (CKD-EPI)AfAm >90 (>60 ml/min/1.73 sqM) Est GFR (CKD-EPI)NonAf 82 (>60 ml/min/1.73 sqM) Glucose 105 H (74-99) mg/dL Plasma Lactic Acid Bogdan (0.7-2.0) mmol/L Calcium 9.5 (8.4-10.2) mg/dL Magnesium 1.6 (1.6-2.3) mg/dL Total Bilirubin 0.7 (0.2-1.3) mg/dL AST 38 H (14-36) U/L ALT 44 (9-52) U/L Alkaline Phosphatase 72 (38-126) U/L Total Creatine Kinase 122 (30-135) U/L CK-MB (CK-2) 0.3 (0.0-2.4) ng/mL CK-MB (CK-2) Rel Index 0.2 Troponin I <0.012 (0.000-0.034) ng/mL Total Protein 7.4 (6.3-8.2) g/dL Albumin 4.5 (3.5-5.0) g/dL TSH 2.110 (0.465-4.680) mIU/L Urine Color Urine Appearance (Clear) Urine pH (5.0-8.0) Ur Specific [place] (1.001-1.035) Urine Protein (Negative) Urine Glucose (UA) (Negative) Urine Ketones (Negative) Urine Blood (Negative) Urine Nitrite (Negative) Urine Bilirubin (Negative) Urine Urobilinogen (<2.0) mg/dL Ur Leukocyte Esterase (Negative) Influenza Type A RNA (Not Detectd) Influenza Type B (PCR) (Not Detectd) Group A Strep Rapid (Negative) 01/22/18 01/22/18 01/22/18 Range/Units 05:41 05:41 05:57 WBC (3.8-10.6) k/uL RBC (3.80-5.40) m/uL Hgb (11.4-16.0) gm/dL Hct (34.0-46.0) % MCV (80.0-100.0) fL MCH (25.0-35.0) pg MCHC (31.0-37.0) g/dL RDW (11.5-15.5) % Plt Count (150-450) k/uL Neutrophils % % Lymphocytes % % Monocytes % % Eosinophils % % Basophils % % Neutrophils # (1.3-7.7) k/uL Lymphocytes # (1.0-4.8) k/uL Monocytes # (0-1.0) k/uL Eosinophils # (0-0.7) k/uL Basophils # (0-0.2) k/uL PT 9.7 (9.0-12.0) sec INR 1.0 (<1.2) APTT 23.6 (22.0-30.0) sec Sodium (137-145) mmol/L Potassium (3.5-5.1) mmol/L Chloride (98-107) mmol/L Carbon Dioxide (22-30) mmol/L Anion Gap mmol/L BUN (7-17) mg/dL Creatinine (0.52-1.04) mg/dL Est GFR (CKD-EPI)AfAm (>60 ml/min/1.73 sqM) Est GFR (CKD-EPI)NonAf (>60 ml/min/1.73 sqM) Glucose (74-99) mg/dL Plasma Lactic Acid Bogdan 0.9 (0.7-2.0) mmol/L Calcium (8.4-10.2) mg/dL Magnesium (1.6-2.3) mg/dL Total Bilirubin (0.2-1.3) mg/dL AST (14-36) U/L ALT (9-52) U/L Alkaline Phosphatase (38-126) U/L Total Creatine Kinase (30-135) U/L CK-MB (CK-2) (0.0-2.4) ng/mL CK-MB (CK-2) Rel Index Troponin I (0.000-0.034) ng/mL Total Protein (6.3-8.2) g/dL Albumin (3.5-5.0) g/dL TSH (0.465-4.680) mIU/L Urine Color Urine Appearance (Clear) Urine pH (5.0-8.0) Ur Specific [place] (1.001-1.035) Urine Protein (Negative) Urine Glucose (UA) (Negative) Urine Ketones (Negative) Urine Blood (Negative) Urine Nitrite (Negative) Urine Bilirubin (Negative) Urine Urobilinogen (<2.0) mg/dL Ur Leukocyte Esterase (Negative) Influenza Type A RNA (Not Detectd) Influenza Type B (PCR) (Not Detectd) Group A Strep Rapid Negative (Negative) 01/22/18 01/22/18 Range/Units 06:00 06:35 WBC (3.8-10.6) k/uL RBC (3.80-5.40) m/uL Hgb (11.4-16.0) gm/dL Hct (34.0-46.0) % MCV (80.0-100.0) fL MCH (25.0-35.0) pg MCHC (31.0-37.0) g/dL RDW (11.5-15.5) % Plt Count (150-450) k/uL Neutrophils % % Lymphocytes % % Monocytes % % Eosinophils % % Basophils % % Neutrophils # (1.3-7.7) k/uL Lymphocytes # (1.0-4.8) k/uL Monocytes # (0-1.0) k/uL Eosinophils # (0-0.7) k/uL Basophils # (0-0.2) k/uL PT (9.0-12.0) sec INR (<1.2) APTT (22.0-30.0) sec Sodium (137-145) mmol/L Potassium (3.5-5.1) mmol/L Chloride (98-107) mmol/L Carbon Dioxide (22-30) mmol/L Anion Gap mmol/L BUN (7-17) mg/dL Creatinine (0.52-1.04) mg/dL Est GFR (CKD-EPI)AfAm (>60 ml/min/1.73 sqM) Est GFR (CKD-EPI)NonAf (>60 ml/min/1.73 sqM) Glucose (74-99) mg/dL Plasma Lactic Acid Bogdan (0.7-2.0) mmol/L Calcium (8.4-10.2) mg/dL Magnesium (1.6-2.3) mg/dL Total Bilirubin (0.2-1.3) mg/dL AST (14-36) U/L ALT (9-52) U/L Alkaline Phosphatase (38-126) U/L Total Creatine Kinase (30-135) U/L CK-MB (CK-2) (0.0-2.4) ng/mL CK-MB (CK-2) Rel Index Troponin I (0.000-0.034) ng/mL Total Protein (6.3-8.2) g/dL Albumin (3.5-5.0) g/dL TSH (0.465-4.680) mIU/L Urine Color Light Yellow Urine Appearance Clear (Clear) Urine pH 7.0 (5.0-8.0) Ur Specific [place] 1.008 (1.001-1.035) Urine Protein Negative (Negative) Urine Glucose (UA) Negative (Negative) Urine Ketones Negative (Negative) Urine Blood Negative (Negative) Urine Nitrite Negative (Negative) Urine Bilirubin Negative (Negative) Urine Urobilinogen <2.0 (<2.0) mg/dL Ur Leukocyte Esterase Negative (Negative) Influenza Type A RNA Not Detected (Not Detectd) Influenza Type B (PCR) Not Detected (Not Detectd) Group A Strep Rapid (Negative) Disposition Clinical Impression: Fever, History of sepsis Disposition: ADMITTED IP TO THIS HOSP Condition: Good Referrals: Keely Flores MD [Primary Care Provider] - 1-2 days
[2018-01-22 06:30] LABS: Creatine Kinase 122 U/L (30-135)
[2018-01-22 06:42] LABS: Creatine Kinase MB 0.3 ng/mL (0.0-2.4); Troponin I <0.012 ng/mL (0.000-0.034)
[2018-01-22 06:42] LABS: Appearance,Urine Clear (Clear); Bilirubin,Urine Negative (Negative); Blood,Urine Negative (Negative); Color,Urine Light Yellow; Glucose,Urine (UA) Negative (Negative); Ketones,Urine Negative (Negative); Leukocyte Esterase,Urine Negative (Negative); Nitrite,Urine Negative (Negative); Protein,Urine Negative (Negative); Specific Gravity,Urine 1.008 (1.001-1.035); Urobilinogen,Urine <2.0 mg/dL (<2.0)
--- NOTE | 2018-01-22 06:49 | XR ---
EXAM: XR Chest, 2 Views. CLINICAL HISTORY: Reason: dysrhythmia TECHNIQUE: Frontal and lateral views of the chest. COMPARISON: No relevant prior studies available. FINDINGS: Lungs: Unremarkable. No consolidation. Pleural spaces: Unremarkable. No pneumothorax. Heart: Unremarkable. No cardiomegaly. Mediastinum: Unremarkable. Bones: Unremarkable. No acute fracture. IMPRESSION: No evidence of active cardiopulmonary abnormality.
[2018-01-22] MEDS ORDERED: ACETAMINOPHEN TAB 325 MG TAB PO PRN (06:57)
[2018-01-22] MEDS ORDERED: NALOXONE 0.4 MG/ML 1 ML VIAL IV PRN ×2 (06:57→08:03)
[2018-01-22] MEDS ORDERED: ONDANSETRON 4 MG/2 ML VIAL IVP PRN (06:57)
--- NOTE | 2018-01-22 08:33 | P.HPIM ---
History of Present Illness H&P Date: 01/22/18 Chief Complaint: Palpitations 57 years old female presents with palpitations. She checked her pulse and found it to be at 122, checked it again several times today and it was running in the low 100. She said her pulse rate normally runs around 70s when she at rest. Patient woke up in the middle of the night because of sweats, she was also feeling nauseous but did not have any vomiting. She felt weak as well, was also complaining from lower pelvic pressure and discomfort. No headaches, no neck stiffness, has a mild cough, no chest pain or shortness of breath, no abdominal pain or diarrhea. She denies any urinary frequency, urgency or dysuria, she also denied having any vagina discharge or abnormal bleeding. Patient was concerned because she was diagnosed with acute urinary tract infection and had sepsis subsequently last March 2017, she had to stay in the hospital for 5 days because of that. In the emergency department she was found to have a temperature of 101.6, she was also tachycardic and because of that she was admitted to the hospital for further evaluation and management. Review of Systems 12 point review of system was performed, negative except for HPI Past Medical History Past Medical History: Thyroid Disorder Additional Past Medical History / Comment(s): hx thyroid nodule, sepsis secondary to urinary tract infection 03/2017 History of Any Multi-Drug Resistant Organisms: None Reported Past Surgical History: Hysterectomy, Tonsillectomy Additional Past Surgical History / Comment(s): partial thyroidectomy Past Anesthesia/Blood Transfusion Reactions: No Reported Reaction Past Psychological History: No Psychological Hx Reported Smoking Status: Never smoker Past Alcohol Use History: None Reported Past Drug Use History: None Reported - Past Family History Father Family Medical History: Cancer Additional Family Medical History / Comment(s): parkinsons, pancreatic cancer Mother Family Medical History: Cancer Additional Family Medical History / Comment(s): lung cancer Brother(s) Family Medical History: No Reported History (The patient has 2 brothers no major medical problems) Sister(s) Family Medical History: Diabetes Mellitus (Patient has 6 sisters 2 of them with diabetes.) Son(s) Family Medical History: No Reported History (Patient has 2 sons no major medical problems.) Medications and Allergies Home Medications Medication Instructions Recorded Confirmed Type Ergocalciferol (Vitamin D2) 50,000 unit PO NELSON 01/21/18 01/22/18 History [Vitamin D2] Allergies Allergy/AdvReac Type Severity Reaction Status Date / Time No Known Allergies Allergy Verified 01/22/18 07:10 Physical Exam Vitals: Vital Signs Temp Pulse Pulse Resp BP BP Pulse Ox 01/22/18 07:47 99.5 F 92 16 106/74 95 01/22/18 06:38 100.5 F H 90 20 125/73 96 01/22/18 05:48 103 H 01/22/18 05:38 100 20 125/83 97 01/22/18 05:30 101.6 F H 96 16 150/89 96 Intake and Output 01/21/18 01/22/18 01/22/18 22:59 06:59 14:59 Other: Weight 74.843 kg Constitutional: No acute distress, conversant, pleasant Eyes:Anicteric sclerae, moist conjunctiva, no lid-lag, PERRLA, ENMT: Oropharynx clear, no erythema, exudates Neck: Supple, FROM, no masses, or JVD, No carotid bruits, No thyromegaly Lungs: Clear to auscultation, Clear to percussion, Normal respiratory effort, no accessory muscle use Cardiovascular: Heart regular in rate and rhythm, No murmurs, gallops, or rubs, No peripheral edema Abdominal: Soft, Nontender, no guarding, rebound or rigidity, Normoactive bowel sounds, No hepatomegaly, No splenomegaly, No palpable mass Skin: Normal temperature, tone, texture, turgor, no induration, No subcutaneous nodules, No rash, lesions, No ulcers Extremities: No digital cyanosis, No clubbing, Pedal pulses intact and symmetrical, Radial pulses intact and symmetrical, No calf tenderness Psychiatric: Alert and oriented to person, place and time, appropriate affect, intact judgement Neuro: Muscles Strength 5/5 in all 4 extremities, Sensation to light touch grossly present throughout, Cranial nerves II-XII grossly intact, no focal sensory deficits Results CBC & Chem 7: 01/22/18 05:41 01/22/18 05:41 Labs: Abnormal Lab Results - Last 24 Hours (Table) 01/22/18 01/22/18 Range/Units 05:41 05:41 Lymphocytes # 0.7 L (1.0-4.8) k/uL Glucose 105 H (74-99) mg/dL AST 38 H (14-36) U/L Assessment and Plan Plan: #1 Systemic inflammatory response syndrome: No obvious source of infection, urinalysis negative, chest x-ray is negative for infection. Blood cultures drawn in the emergency department, will follow No indication for antibiotics at this point Monitor temperature curve and heart rate Labs, chest x-ray and EKG reviewed. #2 History of thyroid nodule: Status post resection
[2018-01-22] MEDS ORDERED: INFLUENZA VACCINE (6 MOS+) 60 MCG/0.5 ML SYRINGE IM ONE (10:34)
[2018-01-22] MEDS: IBUPROFEN 400 MG TAB PO PRN (19:51)
[2018-01-22] MEDS: SODIUM CHLORIDE 0.9% 1,000 ML IV SCH (19:57)
[2018-01-22 22:51] VITALS: RESP 18
[2018-01-23] MEDS: SODIUM CHLORIDE 0.9% 1,000 ML IV SCH (04:38)
[2018-01-23 05:49] VITALS: BP 101/56; PULSE 70; TEMP 96.9
[2018-01-23] MEDS: IBUPROFEN 400 MG TAB PO PRN (08:47)
--- NOTE | 2018-01-23 11:37 | P.DS ---
Providers Date of admission: 01/22/18 06:57 Expected date of discharge: 01/23/18 Attending physician: Shilpa Rayo, Consults: 01/23/18 08:52 Consult Physician Routine Consulting Provider: Ivan Fisher Reason/Comments: fever Do you want consulting provider notified?: Yes Primary care physician: [facility] Course: 57 years old female presented with palpitations. She checked her pulse and found it to be at 122, checked it again several times and it was running in the low 100. She said her pulse rate normally runs around 70s when she at rest. Patient woke up in the middle of the night because of sweats, she was also feeling nauseous but did not have any vomiting. She felt weak as well, was also complaining from lower pelvic pressure and discomfort. No headaches, no neck stiffness, has a mild cough, no chest pain or shortness of breath, no abdominal pain or diarrhea. She denied any urinary frequency, urgency or dysuria, she also denied having any vagina discharge or abnormal bleeding. Patient was concerned because she was diagnosed with acute urinary tract infection and had sepsis subsequently last March 2017, she had to stay in the hospital for 5 days because of that. In the emergency department she was found to have a temperature of 101.6, she was also tachycardic and because of that she was admitted to the hospital for further evaluation and management. Laboratory testing revealed no leukocytosis , her urinalysis was negative for pyuria. She tested negative for influenza A and B and Streptococcus B. Her electrolytes and renal function were all within normal limits. While the patient was observed in the hospital she spiked a fever in the evening but that resolved with some Tylenol. This morning she is feeling much better, she is asking to go home today. Patient will be discharged in a stable condition. She was instructed to come back to the emergency department if she had any recurrent fevers. Patient Condition at Discharge: Good Plan - Discharge Summary Discharge Rx Participant: No New Discharge Prescriptions: New Ergocalciferol [Vitamin D2 (DRISDOL)] 50,000 unit PO Nelson@1200 cap Discontinued Ergocalciferol (Vitamin D2) [Vitamin D2] 50,000 unit PO NELSON Discharge Medication List Ergocalciferol [Vitamin D2 (DRISDOL)] 50,000 unit PO Nelson@1200 cap 01/23/18 [Rx] Follow up Appointment(s)/Referral(s): Keely Flores MD [Primary Care Provider] - 1-2 days
[2018-01-25] MEDS ORDERED: ERGOCALCIFEROL 50,000 UNIT CAP PO SCH (12:00)
== END 2018-01-23 11:52 | disposition home or self-care (01) ==
LOC: EC 05:28 → 4MS4W 06:57
PROVIDERS: ADMIT Internal Medicine; ATTEND Internal Medicine
DX: R00.2 Palpitations (principal); R00.0 Tachycardia, unspecified; R11.0 Nausea; R61 Generalized hyperhidrosis; R53.1 Weakness; R10.2 Pelvic and perineal pain; R05 Cough; R50.9 Fever, unspecified; M54.6 Pain in thoracic spine; J02.9 Acute pharyngitis, unspecified; R65.10 Systemic inflammatory response syndrome (SIRS) of non-infectious origin without acute organ dysfunction; E89.0 Postprocedural hypothyroidism; Z83.3 Family history of diabetes mellitus; Z82.0 Family history of epilepsy and other diseases of the nervous system; Z80.0 Family history of malignant neoplasm of digestive organs; Z80.1 Family history of malignant neoplasm of trachea, bronchus and lung
CPT/HCPCS: 96361 ×4; 96374 ×2; 99285; 36415; 93005; 80053; 82550; 82553; 83605; 83735; 84443; 84484; 85025; 85610; 85730; 81003; 87040; 87086; 87081; 87430; 87502; 71046; G0378 ×2; J0696

== ENCOUNTER → 2020-12-04 | Outpatient (CLI) | payer OTHER ==
--- NOTE | 2020-12-05 12:29 | MM ---
Reason for exam: screening (asymptomatic). Last mammogram was performed 3 years ago. History: Patient is postmenopausal. Family history of breast cancer in maternal aunt at age 58. Took estrogen for 2 years 9 months beginning at age 48. Physical Findings: A clinical breast exam by your physician is recommended on an annual basis and results should be correlated with mammographic findings. MG Screening Mammo w CAD Bilateral CC and MLO view(s) were taken. Prior study comparison: December 08, 2017, bilateral MG screening mammo w CAD. December 14, 2015, right breast MG work up mamm w CAD RT. December 01, 2015, bilateral MG screening mammo w CAD. July 06, 2014, bilateral MG screening mammo w CAD. The breast tissue is heterogeneously dense. This may lower the sensitivity of mammography. Asymmetric densities are unchanged. No significant changes when compared with prior studies. ASSESSMENT: Benign, BI-RAD 2 RECOMMENDATION: Routine screening mammogram of both breasts in 1 year.
== END | disposition home or self-care (01) ==
LOC: RADMAMWWP 13:14
PROVIDERS: ATTEND Obstetrics & Gynecology Obstetrics
DX: Z12.31 Encounter for screening mammogram for malignant neoplasm of breast (principal)
CPT/HCPCS: 77067

== ENCOUNTER → 2022-10-21 | Outpatient (CLI) | payer OTHER ==
--- NOTE | 2022-10-21 07:48 | US ---
EXAMINATION TYPE: US abdomen complete DATE OF EXAM: 10/21/2022 COMPARISON: CT 03/27/2017 CLINICAL HISTORY: R10.33 Periumbilical pain. TECHNIQUE: Multiple sonographic images of the abdomen are obtained. FINDINGS: EXAM MEASUREMENTS: Liver Length: 15.5 cm Gallbladder Wall: 0.20 cm CBD: 0.30 cm Spleen: 8.9 cm Right Kidney: 10.8 x 3.5 x 4.2 cm Left Kidney: 10.8 x 6.3 x 5.3 cm Pancreas: Tail obscured by overlying bowel gas Liver: Slightly echogenic Gallbladder: wnl Evidence for sonographic De Oliveira's sign: No CBD: wnl Spleen: wnl Right Kidney: wnl Left Kidney: wnl Upper IVC: wnl Abd Aorta: wnl *In area of patients pain, periumbilical region: A fat containing hernia is present slightly superior to umbilicus. Increasing with valsalva but not completely resolved with compression. The intrahepatic portion of the IVC and proximal abdominal aorta are within normal limits. There is no evidence of cholelithiasis. Common bile duct is unremarkable. The visualized portions of the bashir creas are homogenous. The spleen is unremarkable. Kidneys are symmetric and free of hydronephrosis. No renal lesions are seen. IMPRESSION: Anterior abdominal wall fat-containing hernia which increased during Valsalva. Note is made of prior CT exam of fat-containing umbilical hernia 2016.
--- NOTE | 2022-10-21 07:50 | US ---
EXAMINATION TYPE: US pelvic complete DATE OF EXAM: 10/21/2022 COMPARISON: NONE CLINICAL HISTORY: R10.33 Periumbilical pain. TECHNIQUE: Transabdominal sonographic images of the pelvis were acquired. 1. Uterus: Surgically absent 2. Endometrium: Surgically absent 3. Right Ovary: Surgically absent 4. Left Ovary: Surgically absent 5. Bilateral Adnexa: wnl 6. Posterior cul-de-sac: wnl No evidence of organizing fluid collection or mass. The urinary bladder is within normal limits. IMPRESSION: 1. No organizing fluid collection or mass. 2. Surgically absent uterus and ovaries.
== END | disposition home or self-care (01) ==
LOC: RADUSWWP 07:00
PROVIDERS: ATTEND Family Medicine
DX: K42.9 Umbilical hernia without obstruction or gangrene (principal); R10.33 Periumbilical pain; Z90.710 Acquired absence of both cervix and uterus
CPT/HCPCS: 76700; 76856

== ENCOUNTER → 2022-11-18 | Outpatient (CLI) | payer OTHER ==
--- NOTE | 2022-11-19 08:35 | MM ---
Reason for Exam: Screening (asymptomatic). Last mammogram was performed 2 year(s) and 0 month(s) ago. Patient History: Menarche at age 14. First Full-Term at age 23. Left ovary removed at age 48. Right ovary removed at age 48. Hysterectomy at age 48. Postmenopausal. Estrogen for 2 years, 9 months, from age 48 until age 50. Maternal aunt had breast cancer, age 58. Risk Values: Tita 5 year model risk: 1.2%. NCI Lifetime model risk: 5.7%. Prior Study Comparison: 12/14/2015 Right Diagnostic Mammogram, [facility]. 12/08/2017 Bilateral Screening Mammogram, [facility]. 12/04/2020 Bilateral Screening Mammogram, [facility]. Tissue Density: The breast tissue is heterogeneously dense. This may lower the sensitivity of mammography. Findings: Analyzed By CAD. There is no suspicious group of microcalcifications or new suspicious mass in either breast. Overall Assessment: Negative, BI-RAD 1 Management: Screening Mammogram of both breasts in 1 year. A clinical breast exam by your physician is recommended on an annual basis and results should be correlated with mammographic findings. Electronically signed and approved by: Benedicto Kyle D.O.
== END | disposition home or self-care (01) ==
LOC: RADMAMWWP 06:58
PROVIDERS: ATTEND Family Medicine
DX: Z12.31 Encounter for screening mammogram for malignant neoplasm of breast (principal); Z78.0 Asymptomatic menopausal state; Z80.3 Family history of malignant neoplasm of breast
CPT/HCPCS: 77063; 77067

== ENCOUNTER → 2023-09-10 | Outpatient (CLI) | payer OTHER ==
[2023-09-10 10:56] LABS: Basophils # (A) 0.07 X 10*3/uL (0.00-0.10); Basophils % (A) 1.3 %; Eosinophils % (A) 3.7 %; HCT 44.2 % (37.2-46.3); HGB 14.5 d/dL (12.0-15.0); Lymphocytes % (A) 24.1 %; MCH 28.9 pg (27.0-32.0); MCHC 32.8 d/dL (32.0-37.0); MCV 88.2 FL (80.0-97.0); Mean Platelet Volume 10.7 FL (9.5-12.2); Monocytes # (A) 0.42 X 10*3/uL (0.20-1.00); Monocytes % (A) 7.8 %; NRBC Per 100 WBC 0 X 10*3/uL (0.00-0.01); Neutrophils # (A) 3.36 X 10*3/uL (1.80-7.70); Neutrophils % (A) 62.4 %; Platelet Count 235 X 10*3/uL (140-440); RBC 5.01 X 10*6/uL (4.10-5.20); RDW 12.6 % (11.5-14.5); WBC 5.39 X 10*3/uL (4.50-10.00)
[2023-09-10 11:25] LABS: ALT 25 U/L (8-44); AST 26 U/L (13-35); Albumin/Globulin Ratio 2.35 Ratio (1.60-3.17); Alkaline Phosphatase 55 U/L (41-126); BUN/Creat Ratio 17.71 Ratio (12.00-20.00); Blood Urea Nitrogen 12.4 mg/dL (9.0-27.0); Calcium 9.4 mg/dL (8.7-10.3); Carbon Dioxide 26.3 mmol/L (21.6-31.8); Chloride 104 mmol/L (96-109); Globulin 1.7 d/dL (1.6-3.3); Glucose 116 mg/dL (70-110); LDL Cholesterol,Calculated 129.6 mg/dL (0.0-131.0); Potassium 4.7 mmol/L (3.5-5.5); Sodium 140 mmol/L (135-145); Total Bilirubin 0.4 mg/dL (0.3-1.2); Total Protein 5.7 d/dL (6.2-8.2)
== END | disposition home or self-care (01) ==
LOC: LABWHC1 06:47
PROVIDERS: ATTEND Family Medicine
DX: Z00.00 Encounter for general adult medical examination without abnormal findings (principal); E78.2 Mixed hyperlipidemia
CPT/HCPCS: 36415; 80053; 80061; 83036; 84443; 85025

== ENCOUNTER → 2024-04-19 | Outpatient (CLI) | payer OTHER ==
[2024-04-19 15:54] LABS: Albumin 4.3 g/dL (3.8-4.9); BUN/Creat Ratio 23.43 Ratio (12.00-20.00); Blood Urea Nitrogen 16.4 mg/dL (9.0-27.0); Calcium 9.2 mg/dL (8.7-10.3); Carbon Dioxide 25.6 mmol/L (21.6-31.8); Chloride 106 mmol/L (96-109); Chol/HDL Ratio 3.46 Ratio; Glucose 104 mg/dL (70-110); LDL Cholesterol,Calculated 137.7 mg/dL (0.0-131.0); Potassium 4.5 mmol/L (3.5-5.5); Sodium 142 mmol/L (135-145); Total Protein 6.1 g/dL (6.2-8.2)
[2024-04-19 15:55] LABS: ALT 26 U/L (8-44); AST 32 U/L (13-35); Albumin/Globulin Ratio 2.39 Ratio (1.60-3.17); Alkaline Phosphatase 64 U/L (41-126); Globulin 1.8 g/dL (1.6-3.3); Total Bilirubin 0.5 mg/dL (0.3-1.2)
[2024-04-19 22:09] LABS: Microalbumin Creatinine Ratio <11 mg/g Cr (0-30)
== END | disposition home or self-care (01) ==
LOC: LABWHC1 07:00
PROVIDERS: ATTEND Family Medicine
DX: E11.9 Type 2 diabetes mellitus without complications (principal)
CPT/HCPCS: 36415; 80053; 80061; 82043; 82570; 83036

== ENCOUNTER → 2024-10-18 | Outpatient (CLI) | payer OTHER ==
[2024-10-18 14:57] LABS: Basophils # (A) 0.05 X 10*3/uL (0.00-0.10); Basophils % (A) 0.9 %; Eosinophils # (A) 0.11 X 10*3/uL (0.04-0.35); HCT 41.8 % (37.2-46.3); MCH 29.2 pg (27.0-32.0); MCHC 33.5 g/dL (32.0-37.0); MCV 87.3 FL (80.0-97.0); Mean Platelet Volume 10.9 FL (9.5-12.2); Monocytes # (A) 0.37 X 10*3/uL (0.20-1.00); Monocytes % (A) 6.8 %; NRBC Per 100 WBC 0 X 10*3/uL (0.00-0.01); Neutrophils # (A) 3.69 X 10*3/uL (1.80-7.70); Neutrophils % (A) 67.6 %; Platelet Count 262 X 10*3/uL (140-440); RBC 4.79 X 10*6/uL (4.10-5.20); RDW 12.2 % (11.5-14.5); WBC 5.46 X 10*3/uL (4.50-10.00)
[2024-10-18 15:03] LABS: ALT 21 U/L (8-44); AST 25 U/L (13-35); Albumin 4.6 g/dL (3.8-4.9); Alkaline Phosphatase 81 U/L (41-126); BUN/Creat Ratio 19.57 Ratio (12.00-20.00); Blood Urea Nitrogen 13.7 mg/dL (9.0-27.0); Calcium 9.7 mg/dL (8.7-10.3); Carbon Dioxide 25.6 mmol/L (21.6-31.8); Chloride 106 mmol/L (96-109); Globulin 2.3 g/dL (1.6-3.3); Glucose 116 mg/dL (70-110); LDL Cholesterol,Calculated 126.7 mg/dL (0.0-131.0); Sodium 143 mmol/L (135-145); Total Bilirubin 0.6 mg/dL (0.3-1.2); Total Protein 6.9 g/dL (6.2-8.2)
[2024-10-18 20:17] LABS: Microalbumin Creatinine Ratio <11 mg/g Cr (0-30)
== END | disposition home or self-care (01) ==
LOC: LABWHC1 10:27
PROVIDERS: ATTEND Family Medicine
DX: Z00.00 Encounter for general adult medical examination without abnormal findings (principal); E11.9 Type 2 diabetes mellitus without complications; E78.2 Mixed hyperlipidemia
CPT/HCPCS: 36415; 80053; 80061; 82043; 82570; 83036; 84443; 85025

== ENCOUNTER → 2025-02-16 | Outpatient (CLI) | payer OTHER ==
--- NOTE | 2025-02-16 11:23 | MM ---
Reason for Exam: Screening (asymptomatic). Last mammogram was performed 2 year(s) and 3 month(s) ago. Patient History: Menarche at age 14. First Full-Term at age 23. Left ovary removed at age 48. Right ovary removed at age 48. Hysterectomy at age 48. Postmenopausal. Estrogen for 2 years, 9 months, from age 48 until age 50. Maternal aunt had breast cancer, age 58. Risk Values: Tita 5 year model risk: 1.3%. NCI Lifetime model risk: 5.3%. Prior Study Comparison: 12/08/2017 Bilateral Screening Mammogram, [facility]. 12/04/2020 Bilateral Screening Mammogram, [facility]. 11/18/2022 Bilateral MG 3D screening mammo w/cad, [facility]. Tissue Density: The breasts are heterogeneously dense, which may obscure small masses. Findings: Analyzed By CAD. 12:00 central focal asymmetry left breast remains unchanged. There is no suspicious group of microcalcifications or new suspicious mass in either breast. Overall Assessment: Benign, BI-RAD 2 Management: Screening Mammogram of both breasts in 1 year. Patient should continue monthly self-breast exams. A clinical breast exam by your physician is recommended on an annual basis. This exam should not preclude additional follow-up of suspicious palpable abnormalities. Note on Tita scores and lifetime risk: 1. A Tita score greater than 3% is considered moderate risk. If this is the case, consider specialist referral to assess eligibility for a risk reducing agent. 2. If overall lifetime risk for the development of breast cancer is 20% or higher, the patient may qualify for future screening with alternating mammogram and breast MRI. [facility], , 02/16/2025 11:20 AM. Electronically signed and approved by: Perico Juarez M.D. Radiologist
== END | disposition home or self-care (01) ==
LOC: RADMAMWWP 08:27
PROVIDERS: ATTEND Family Medicine
DX: Z12.31 Encounter for screening mammogram for malignant neoplasm of breast (principal); R92.333 Mammographic heterogeneous density, bilateral breasts; Z78.0 Asymptomatic menopausal state; Z80.3 Family history of malignant neoplasm of breast
CPT/HCPCS: 77067